=== PATIENT | female | born 1960 | race Caucasian/White ===

== ENCOUNTER 2024-03-27 05:41 | Day surgery (SDC) | payer OTHER ==
[2024-03-27] MEDS ORDERED: BENZOCAINE 20% 50 MCG/SPRAY 57 GM TP ONE (05:42)
[2024-03-27] MEDS ORDERED: ALBUTEROL SULFATE 2.5 MG/0.5 ML NEB SOLUTION NEB ONE (05:42)
[2024-03-27] MEDS ORDERED: LIDOCAINE 2% 11 ML JELLY TP ONE (05:42)
[2024-03-27] MEDS ORDERED: LIDOCAINE 4% 50 ML SOLUTION TP ONE (05:42)
[2024-03-27] MEDS ORDERED: ATOR40TA28 PO (08:10)
[2024-03-27] MEDS ORDERED: LISI-894 PO (08:10)
[2024-03-27] MEDS ORDERED: METO-296 PO (08:10)
[2024-03-27] MEDS ORDERED: RABE-13 PO (08:10)
[2024-03-27] MEDS ORDERED: BRIM5DRO9 OU (08:10)
[2024-03-27] MEDS ORDERED: CYCL-448 PO (08:10)
[2024-03-27] MEDS ORDERED: METF-1211 PO (08:10)
[2024-03-27] MEDS ORDERED: CYCL1DRO21 OU (08:10)
[2024-03-27] MEDS ORDERED: FLUT16SP NASAL (08:10)
[2024-03-27] MEDS ORDERED: DULO-114 PO (08:10)
[2024-03-27] MEDS ORDERED: LEVO75 PO (08:10)
[2024-03-27] MEDS ORDERED: LORA10TA7 PO (08:10)
[2024-03-27] MEDS ORDERED: CELE200 PO (08:10)
[2024-03-27] MEDS ORDERED: PREG25 PO (08:10)
[2024-03-27] MEDS ORDERED: FentaNYL CITRATE PF 100 MCG/2 ML VIAL ONE (08:15)
[2024-03-27] MEDS ORDERED: MIDAZOLAM HCL 2 MG/2 ML VIAL ONE (08:15)
[2024-03-27 08:21] LABS: GLUCOMETER DEV NAME(LOC) SDS.; GLUCOSE,POINT OF CARE 85 MG/DL (70-110)
[2024-03-27] MEDS: SODIUM CHLORIDE 0.9% 1,000 ML IV ONE (09:27)
[2024-03-27 09:57] VITALS: PULSE 87; RESP 15; O2SAT 99
[2024-03-27] MEDS ORDERED: MethylPREDNISolone SOD SUCC 125 MG/2 ML VIAL ONE (10:09)
[2024-03-27] MEDS: MethylPREDNISolone SOD SUCC 125 MG/2 ML VIAL IVP ONE (10:34)
== END 2024-03-27 13:15 | disposition home or self-care (01) ==
LOC: SURGERY 05:41
PROVIDERS: ATTEND Internal Medicine Critical Care Medicine
DX: J38.4 Edema of larynx (principal); B37.0 Candidal stomatitis; J45.909 Unspecified asthma, uncomplicated; I10 Essential (primary) hypertension; E11.9 Type 2 diabetes mellitus without complications; Z79.899 Other long term (current) drug therapy; Z98.890 Other specified postprocedural states
CPT/HCPCS: 31623; 82962; 87206; 87101; 87220; 87070; 88108; 31624; 94640; 71045; 71250; 87015; J3010; J2250; J2919; J7613; Z7610